=== PATIENT | female | born 1965 | race Asian ===

== ENCOUNTER 2020-10-27 12:26 | Emergency (ER) | payer BC, SELFPAY ==
[~2020-10-27] VITALS: Ht 167.6 cm; Wt 54.4 kg
[2020-10-27 12:34] VITALS: Ht 167.6 cm; Wt 54.4 kg
[2020-10-27 12:41] VITALS: BP 124/76
== END 2020-10-27 14:38 | disposition home or self-care (01) ==
LOC: ED 12:26 → EDSEX 12:26 → ED 14:38
DX: U07.1 COVID-19 (principal); I10 Essential (primary) hypertension; Z98.890 Other specified postprocedural states
CPT/HCPCS: 87804; U0003